=== PATIENT | male | born 1950 | race Caucasian/White ===

== ENCOUNTER 2019-10-14 20:39 | Inpatient (IN) | payer MEDICARE, OTHER ==
[~2019-10-14] VITALS: Ht 177.8 cm; Wt 83.9 kg
[~2019-10-14 20:39] MED LIST: ALPR0.25 PO; AMIT10TA6 PO; AMLO10TA4 PO; ASPI-1169 PO; ATOR40TA PO; CLON0.1T PO; CLOP75TA15 PO; FENO134C PO; LANS30CA54 PO; LOSA1TAB15 PO; METO-357 PO; ZOLP10TA6 PO
--- NOTE | 2019-10-14 20:48 | NUR ---
PT [facility] COMPLAINING OF DIZZINESS. MOVING WORSENS IT. PT AAOX4, BREATHING EVEN AND UNLABORED ON RA W/ AND NOTED. PT CONNECTED TO THE MONITOR AND POX
[2019-10-14] MEDS ORDERED: MECLIZINE HCL 25 MG TABLET ONE (21:17)
[2019-10-14] MEDS ORDERED: MECLIZINE HCL 12.5 MG TABLET PO ONE (21:30)
--- NOTE | 2019-10-14 22:16 | NUR ---
URINE COLLECTED AND SENT TO LAB
--- NOTE | 2019-10-14 22:17 | NUR ---
BLOOD DRAWN AND SENT TO LAB
[2019-10-14 22:20] LABS: BASOPHILS # (AUTO) 0.1 /CMM (0.0-0.2); BASOPHILS % (AUTO) 0.8 % (0.0-2.0); EOSINOPHILS % (AUTO) 1.3 % (0.0-6.0); HEMATOCRIT 40 % (39-51); HEMOGLOBIN 13.9 g/dL (13.5-17.5); LYMPHOCYTES # (AUTO) 1.5 /CMM (0.8-4.8); MEAN CORPUSCULAR HGB CONC 35 g/dl (31.0-36.0); MEAN CORPUSCULAR VOLUME 96 fL (80-96); MONOCYTES # (AUTO) 0.5 /CMM (0.1-1.30); MONOCYTES % (AUTO) 5.8 % (2.0-12.0); NEUTROPHILS # (AUTO) 7.1 /CMM (1.8-8.9); NEUTROPHILS % (AUTO) 76.1 % (43.0-81.0); PLATELET COUNT (AUTO) 201 /CMM (150-450); RED BLOOD CELL COUNT(AUTO) 4.22 MIL/uL (4.5-6.0); WHITE BLOOD COUNT (AUTO) 9.3 K/uL (4.3-11.0)
[2019-10-14 22:27] LABS: APPEARANCE,URINE Clear (CLEAR); BILIRUBIN,URINE Negative (NEGATIVE); BLOOD, URINE Trace-lysed Ery/uL (NEGATIVE); COLOR,URINE Yellow (YELLOW); KETONES,URINE Negative (NEGATIVE); LEUKOCYTE ESTERASE ,URINE Negative (NEGATIVE); NITRITE, URINE Negative (NEGATIVE); PROTEIN,URINE 100 mg/dl (NEGATIVE); UGLUCOSE Negative (NEGATIVE); UROBILINOGEN,URINE 0.2 EU/dL (0.2)
[2019-10-14 22:29] LABS: CALCIUM, SERUM 9.2 mg/dL (8.5-10.1); POTASSIUM 3.2 mmol/L (3.5-5.1)
[2019-10-14 22:32] LABS: BACTERIA,URINE Rare /HPF (None Seen); SQUAMOUS EPITHELIAL CELL,UR Few /HPF (None Seen); WBC,URINE NONE SEEN /HPF (0-3)
[2019-10-14 22:35] LABS: ALBUMIN 3.4 g/dL (3.4-5.0); BILIRUBIN,DIRECT 0.1 mg/dL (0.0-0.2); BILIRUBIN,TOTAL 0.6 mg/dL (0.2-1.0); TOTAL PROTEIN, SERUM 7.4 g/dL (6.4-8.2)
--- NOTE | 2019-10-14 22:49 | NUR ---
ROOM 322-1
--- NOTE | 2019-10-14 23:05 | NUR ---
REPORT GIVEN TO MAHAMED BAI
[2019-10-15] VITALS (8 sets, daily range): BP systolic 116–151; BP diastolic 66–88
--- NOTE | 2019-10-15 00:09 | NUR ---
PT TRANSFERRED IN STABLE CONDITION
[2019-10-15] MEDS ORDERED: IV NS 0.9% 1,000 ML IV PRN (00:25)
[2019-10-15] MEDS ORDERED: ENOXAPARIN SODIUM 40 MG/0.4 ML DISP.SYRIN SQ SCH (00:30)
[2019-10-15] MEDS ORDERED: MECLIZINE HCL 12.5 MG TABLET PO PRN ×2 (00:30→15:30)
[2019-10-15] MEDS ORDERED: ONDANSETRON HCL/PF 4 MG/2 ML VIAL IVP PRN (00:30)
[2019-10-15] MEDS ORDERED: Z GUARD REMEDY 2 OZ OINT TP PRN (00:30)
[2019-10-15] MEDS ORDERED: POTASSIUM CHLORIDE 20 MEQ TAB.PRT.SR PO ONE (01:00)
[2019-10-15] MEDS: BUMETANIDE INJ 4 MG in IV NS 0.9% 24 ML IV ONE ×2 (01:00→04:39)
[2019-10-15] MEDS ORDERED: CLONIDINE HCL 0.1 MG TABLET PO PRN (02:00)
[2019-10-15] MEDS ORDERED: ZOLPIDEM TARTRATE 10 MG TABLET PO PRN (02:00)
[2019-10-15] MEDS ORDERED: ALPRAZOLAM 0.25 MG TABLET PO PRN (02:00)
[2019-10-15] MEDS ORDERED: BUMETANIDE INJ 0.25 MG/ML VIAL ONE (04:05)
[2019-10-15] MEDS ORDERED: IOHEXOL-350 100 ML VIAL IV ONE (08:17)
[2019-10-15] MEDS ORDERED: CT SWABBABLE VALVE TRANS SET 1 EA INFUS.SET MC ONE (08:18)
[2019-10-15] MEDS ORDERED: IV NS 0.9% 250 ML IV ONE (08:18)
[2019-10-15] MEDS ORDERED: METOPROLOL TARTRATE INJ 5 MG/5 ML AMPUL ONE ×2 (08:41→08:58)
[2019-10-15] MEDS: METOPROLOL TARTRATE INJ 5 MG/5 ML AMPUL IVP PRN ×3 (08:45→08:55)
[2019-10-15] MEDS: AMITRIPTYLINE HCL 10 MG TABLET PO SCH (09:00)
[2019-10-15] MEDS: AMLODIPINE BESYLATE 10 MG TABLET PO SCH (09:00)
[2019-10-15] MEDS ORDERED: IV NS 0.9% 500 ML IV PRN (09:00)
[2019-10-15] MEDS: FENOFIBRATE NANOCRYS (145 MG) 145 MG TABLET PO SCH (09:00)
[2019-10-15] MEDS: HYDROCHLOROTHIAZIDE 25 MG TABLET PO SCH (09:00)
[2019-10-15] MEDS ORDERED: ASPIRIN EC 81 MG TABLET.DR PO SCH (09:00)
[2019-10-15] MEDS: METOPROLOL SUCCINATE 50 MG TAB.SR.24H PO SCH ×2 (09:00→17:24)
[2019-10-15] MEDS ORDERED: ASPIRIN 81 MG TAB.CHEW PO SCH (09:00)
[2019-10-15] MEDS ORDERED: NITROGLYCERIN 0.4 MG/TAB BOTTLE SL ONE (09:00)
[2019-10-15] MEDS ORDERED: CLOPIDOGREL BISULFATE 75 MG TABLET PO SCH (09:00)
[2019-10-15] MEDS: LOSARTAN POTASSIUM 50 MG TABLET PO SCH (09:00)
--- NOTE | 2019-10-15 09:24 | NUR ---
CTA heart completed, VS stable, denies CP, SOB, sent back to floor via wheelchair
[2019-10-15] MEDS: APIXABAN 5 MG TABLET PO SCH ×2 (10:36→17:24)
--- NOTE | 2019-10-15 11:19 | NUR ---
TELE/RN NOTE THE PATIENT IS SEEN BY DR JADE AND RECEIVED NEW ORDER OF JANUMET AND TRULICITY. THE ORDERS AREA READ BACK, VERIFIED. NOTED AND CARRIED OUT.
[2019-10-15] MEDS ORDERED: DULAGLUTIDE 1.5 MG SQ SCH (14:00)
[2019-10-15] MEDS ORDERED: DEXTROSE 50%-WATER 50 ML DISP.SYRIN IV PRN (14:00)
[2019-10-15 15:29] LABS: BASOPHILS % (AUTO) 0.6 % (0.0-2.0); EOSINOPHILS % (AUTO) 1.2 % (0.0-6.0); HEMATOCRIT 42 % (39-51); HEMOGLOBIN 14.5 g/dL (13.5-17.5); LYMPHOCYTES # (AUTO) 1.8 /CMM (0.8-4.8); MEAN CORPUSCULAR HGB CONC 35 g/dl (31.0-36.0); MEAN CORPUSCULAR VOLUME 95 fL (80-96); MONOCYTES # (AUTO) 0.5 /CMM (0.1-1.30); MONOCYTES % (AUTO) 6.6 % (2.0-12.0); NEUTROPHILS # (AUTO) 5.1 /CMM (1.8-8.9); NEUTROPHILS % (AUTO) 67.6 % (43.0-81.0); PLATELET COUNT (AUTO) 197 /CMM (150-450); RED BLOOD CELL COUNT(AUTO) 4.43 MIL/uL (4.5-6.0); WHITE BLOOD COUNT (AUTO) 7.5 K/uL (4.3-11.0)
--- NOTE | 2019-10-15 17:00 | NUR ---
TELE/RN NOTE BLOOD PRESSURE AND PULSE LYING DOWN: BP 139/78 AND PULSE 84 BLOOD PRESSURE AND PULSE SITTING UP: BP 134/81 AND PULSE 75 BLOOD PRESSURE AND PULSE STANDING UP: BP 143/79 AND PULSE 77
--- NOTE | 2019-10-15 17:05 | NUR ---
TELE/RN NOTE THE PATIENT`S BLOOD SUGAR IS 135 BUT THE PATIENT REFUSED TO GET SLIDING SCALE INSULIN DESPITE EXPLAINING RISKS AND BENEFITS MULTIPLE TIMES.
--- NOTE | 2019-10-15 17:24 | NUR ---
MS/RN NOTE PATIENT COMPLAINS OF DIZZINESS. ANTIVERT GIVEN ORDERED. WILL CONTINUE TO MONITOR.
[2019-10-15] MEDS: BLOOD SUGAR DIAGNOSTIC 1 EACH STRIP IN SCH ×2 (17:25→21:18)
--- NOTE | 2019-10-15 18:10 | NUR ---
MS/RN NOTE THE PATIENT VERBALIZED ANTIVERT BEING EFFECTIVE. DENIES DIZZINESS AT THIS TIME.
--- NOTE | 2019-10-15 18:21 | NUR ---
MS/RN NOTE THE PATIENT IS ALERT AND ORIENTED AND ORIENTED X4. PATIENT IS IN ROOM AIR AND SATURATION IS AT 96%. DENIES SOB. RESPIRATION REGULAR AND UNLABORED. DENIES PAIN. THE PATIENT IS IN NO APPARENT DISTRESS. RAC G 18 PATENT AND SALINE LOCKED. DENIES DIZZINESS AT THIS TIME. BED LOW AND LOCKED. SIDE RAILS UP X3. BED ALARM ON. CALL LIGHT WITHIN REACH. WILL ENDORSE TO SHEAR SETTER.
--- NOTE | 2019-10-15 19:16 | NUR ---
CHANGE OF SHIFT REPORT Patient in bed, awake. Appears anxious, denies shortness of breath, no c/o headache, dizziness. Refused bed alarm, education provided, verbalized understanding. Voicing to go home tomorrow. Fall precaution maintained.
[2019-10-15] MEDS: ACETAMINOPHEN 325 MG TABLET PO PRN (21:20)
[2019-10-15] MEDS: INSULIN REGULAR, HUMAN 100 UNIT/ML 3 ML VIAL SQ PRN (21:26)
[2019-10-15] MEDS ORDERED: ATORVASTATIN 40 MG TABLET PO SCH (22:00)
[2019-10-16] MEDS: ACETAMINOPHEN 325 MG TABLET PO PRN (05:53)
--- NOTE | 2019-10-16 06:22 | NUR ---
END OF SHIFT REPORT Patient in bed, awake, A/O x3. Stable Oxygen saturation on RA. Episode of anxiety resolved with PRN Xanax. Headache relieved with PRN Tylenol, denies dizziness, no c/o nausea, vomiting. Fall precaution maintained. Will endorse to Oncoming RN.
[2019-10-16 06:46] LABS: BASOPHILS % (AUTO) 0.3 % (0.0-2.0); EOSINOPHILS % (AUTO) 1.8 % (0.0-6.0); HEMATOCRIT 43 % (39-51); HEMOGLOBIN 14.8 g/dL (13.5-17.5); LYMPHOCYTES % (AUTO) 25.2 % (20.0-44.0); MEAN CORPUSCULAR HGB CONC 35 g/dl (31.0-36.0); MEAN CORPUSCULAR VOLUME 95 fL (80-96); MONOCYTES # (AUTO) 0.6 /CMM (0.1-1.30); MONOCYTES % (AUTO) 7.8 % (2.0-12.0); NEUTROPHILS # (AUTO) 5.2 /CMM (1.8-8.9); NEUTROPHILS % (AUTO) 64.9 % (43.0-81.0); PLATELET COUNT (AUTO) 181 /CMM (150-450); RED BLOOD CELL COUNT(AUTO) 4.49 MIL/uL (4.5-6.0)
[2019-10-16 06:56] LABS: ALBUMIN 3.2 g/dL (3.4-5.0); CREATININE 1.1 mg/dL (0.6-1.3); MAGNESIUM 1.7 mg/dL (1.8-2.4); PHOSPHORUS 4.3 mg/dL (2.5-4.9); POTASSIUM 3.1 mmol/L (3.5-5.1); TOTAL PROTEIN, SERUM 7.2 g/dL (6.4-8.2)
[2019-10-16] MEDS: BLOOD SUGAR DIAGNOSTIC 1 EACH STRIP IN SCH ×2 (06:58→11:39)
[2019-10-16] MEDS: INSULIN REGULAR, HUMAN 100 UNIT/ML 3 ML VIAL SQ PRN ×2 (07:00→11:26)
[2019-10-16 07:04] LABS: THYROID STIMULATING HORMONE 1.14 uIU/mL (0.358-3.74)
--- NOTE | 2019-10-16 07:42 | NUR ---
MS/RN OPENING NOTE Patient received resting in bed, A/O x4, showing no signs of acute dsitress or SOB, breathing is even and unlabored saturating well on RA. IV line is clean and intact s/l. Patient has no complaints of pain at this time. Patient is ambulatory and has BRP, skin is intact. Bed is in lowest position, side rails x2 in upright position, call light is within reach and patient is aware of how to call for assistance when needed. Will continue with plan of care.
[2019-10-16 08:00] VITALS: BP_SYST 119; BP_SYST 121; BP_DIAS 69; BP_DIAS 79
[2019-10-16] MEDS: METFORMIN 500 MG TABLET PO SCH ×2 (08:37→08:46)
[2019-10-16] MEDS: APIXABAN 5 MG TABLET PO SCH (08:39)
[2019-10-16] MEDS: POTASSIUM CHLORIDE 20 MEQ TAB.PRT.SR PO SCH ×3 (08:40→11:27)
[2019-10-16] MEDS: Magnesium 1GM/D5W 100ML PREMIX 100 ML IV SCH ×2 (08:42→09:30)
[2019-10-16] MEDS: AMITRIPTYLINE HCL 10 MG TABLET PO SCH (08:44)
[2019-10-16] MEDS: HYDROCHLOROTHIAZIDE 25 MG TABLET PO SCH (08:44)
[2019-10-16] MEDS: LOSARTAN POTASSIUM 50 MG TABLET PO SCH (08:44)
[2019-10-16] MEDS: FENOFIBRATE NANOCRYS (145 MG) 145 MG TABLET PO SCH (08:45)
[2019-10-16] MEDS: AMLODIPINE BESYLATE 10 MG TABLET PO SCH (08:45)
[2019-10-16] MEDS: METOPROLOL SUCCINATE 50 MG TAB.SR.24H PO SCH (08:45)
[2019-10-16] MEDS ORDERED: PANTOPRAZOLE 40 MG TABLET.DR PO SCH (09:00)
[2019-10-16] MEDS ORDERED: JANUMET PO SCH (09:00)
[2019-10-16] MEDS ORDERED: LINAGLIPTIN 5 MG TABLET PO SCH (09:00)
[2019-10-16] MEDS ORDERED: APIX5TAB PO (09:53)
[2019-10-16] MEDS ORDERED: MECL-182 PO (09:53)
[2019-10-16 10:45] VITALS: BP 124/62
[2019-10-16 10:48] VITALS: BP 106/58
[2019-10-16 10:50] VITALS: BP 105/55
--- NOTE | 2019-10-16 11:55 | NUR ---
MS/MOTION PICTURE DIRECTOR NOTE Patient is medically stable for discharge, A/O x4, in no acute distress, no SOB noted, vital signs WNL. DC instructions provided and patient verbalizes understanding. IV removed, ID band removed. Patient refused skin assessment. Patient has all belongings with them and belongings list signed. Patient kept clean and dry throughout shift, all patient needs met, all due meds given. Patient has left the unit ambulatory accompanied by family and left hospital via private car.
== END 2019-10-16 11:30 | disposition home or self-care (01) | DRG 149 ==
LOC: ER 20:45 → TELE 23:24 → MED 10-15 09:00
PROVIDERS: ADMIT Nurse Practitioner Acute Care; ATTEND Nurse Practitioner Acute Care
DX: H81.10 Benign paroxysmal vertigo, unspecified ear (principal); I21.A1 Myocardial infarction type 2; I48.20 Chronic atrial fibrillation, unspecified; E11.9 Type 2 diabetes mellitus without complications; E87.6 Hypokalemia; I25.10 Atherosclerotic heart disease of native coronary artery without angina pectoris; Z86.73 Personal history of transient ischemic attack (TIA), and cerebral infarction without residual deficits; Z79.82 Long term (current) use of aspirin; Z79.01 Long term (current) use of anticoagulants; Z91.19 Patient's noncompliance with other medical treatment and regimen; R91.8 Other nonspecific abnormal finding of lung field; Z79.4 Long term (current) use of insulin; I10 Essential (primary) hypertension; E83.42 Hypomagnesemia
CPT/HCPCS: 36415; 70450-TC; 71045-TC; 75574; 80048-TC; 80053-TC; 80061-TC; 80076-TC; 81000-TC; 82962-TC; 83540-TC; 83735-TC; 83880; 84100-TC; 84443-TC; 84484-TC; 85025-TC; 85652-TC; 85730-TC; 87081-TC; 93307-TC; 93880-TC; 97116-TC; 97530-TC; G0378; J1815; J3475; J3490; J7030; J7050; J8597; Q9967